=== PATIENT | female | born 1970 | race Caucasian/White ===

== ENCOUNTER → 2016-11-09 | Outpatient (CLI) | payer BC | LOC: MC.RAD 08:00 | DX: Z12.31 Encounter for screening mammogram for malignant neoplasm of breast (principal) ==

== ENCOUNTER → 2018-02-15 | Outpatient (CLI) | payer BC | LOC: MC.RAD 15:30 | DX: Z12.31 Encounter for screening mammogram for malignant neoplasm of breast (principal) ==

== ENCOUNTER → 2019-05-10 | Outpatient (CLI) | payer BC | LOC: MC.RAD 04-05 13:45 | DX: Z12.31 Encounter for screening mammogram for malignant neoplasm of breast (principal) ==

== ENCOUNTER → 2020-05-14 | Outpatient (CLI) | payer BC | LOC: MC.RAD | DX: Z12.31 Encounter for screening mammogram for malignant neoplasm of breast (principal) ==

== ENCOUNTER → 2020-07-07 | Outpatient (CLI) | payer BC | LOC: COL.RAD 12:21 | DX: H92.02 Otalgia, left ear (principal) ==

== ENCOUNTER → 2021-07-28 | Outpatient (CLI) | payer BC | LOC: MC.RAD 14:39 | DX: Z12.31 Encounter for screening mammogram for malignant neoplasm of breast (principal) ==